=== PATIENT | female | born 1990 | race Hispanic/Latino ===

== ENCOUNTER → 2025-01-16 | Outpatient (CLI) | payer OTHER ==
[~2025-01-16] VITALS: Ht 15.2 cm; Wt 110.5 kg
--- NOTE | 2025-01-16 13:23 | NUR ---
BARIATRIC INITIAL ASSESSMENT VISIT 1 OF 6 Wt: 243.6 lbs DOS: 01/16/25 Pt seeking bariatric procedure to aid in wt loss and improve medical health conditions. Pt reported she heard of procedure from family members, has struggled with wt all her life, has tried medication, exercise to lose wt, mothers and fathers side both struggle with wt, CBW length of wt has been 3 months, has 6 children, 13 yr old with autism, no support at home, grocery shops on her own, mainly cooks, eats ~2 meals + 1 snack, sodas 1x per day, sweet/salty snacks 2x per day, fast food 3x per week, it takes 30-40 min to finish a meal, struggles with emotional and stress eating, dx with anxiety and depression, no therapy, no plan for any time soon, work affects eating habits, is a junior high math teacher, does not travel often, has means to purchase healthy food with no issue, sleeps ~5 hrs per day, is able to exercise, mom being support system, goal wt of 150 [address] conducted 24 hr recall: Breakfast: flour tortilla taco + potato+ egg+ cheese + coffee w/ sugar and creamer Lunch: skipped Dinner: 1 slice of pizza+ ramen noddles + dr delacruz Snack(s): chocolate covered strawberries + water RD reviewed portion sizes with pt, reviewed healthy plate, informed Pt of importance of protein intake, demonstrated DM chart, reviewed carbohydrate sources and carbohydrate counting, provided and an estimate for estimated carbohydrate intake per day. Pt completed wt management program diet readiness questionnaire. Results are as follows: Section 1: Goals and Attitudes. Score of 22.You may be close to being ready to begin a program but should think about ways to boost your preparedness before you begin. Sections 2: Hunger and Eating cues. Score 5.You might occasionally eat more than you would like, but it does not appear to be a result of high responsiveness to environmental cues. Controlling the attitudes that make you eat may be especially helpful. Section 3: Control over Eating. Score 3.You recover rapidly from mistakes. However, if you frequently alternate between eating out of control and dieting strictly, you may have a serious eating problem and should get professional help. Section 4: Nidhi Eating and Purging: Score 0. It appears that binge eating, and purging is not a problem for you. Section 5: Emotional Eating: Score 10.You sometimes eat in response to emotional highs and lows. Monitor this behavior to learn when and why it occurs and be prepared to find alternative activities. Section 6: Exercise Patterns and Attitudes: Score 13. You need to feel more positive about exercise so that you can do it more often. Think of ways to be more active that are fun and fit your lifestyle. Goals Established: -MVI QD -30 min walk QD -transition to SF beverages Pt in agreement with goals and is aware she will need to cut carbonated beverages, sweets and caffeine prior to surgery. Recommended for Pt to complete visits with Dietitian to prepare for bariatric procedure. Thank you for this visit. Addendum: 01/16/25 at [address] Amended: Links added.
== END | disposition home or self-care (01) ==
LOC: DTH 09:48
PROVIDERS: ATTEND Surgery
DX: I10 Essential (primary) hypertension (principal); G47.33 Obstructive sleep apnea (adult) (pediatric); M19.91 Primary osteoarthritis, unspecified site; E78.00 Pure hypercholesterolemia, unspecified; K21.9 Gastro-esophageal reflux disease without esophagitis; E66.01 Morbid (severe) obesity due to excess calories; Z68.41 Body mass index [BMI] 40.0-44.9, adult
CPT/HCPCS: 97802

== ENCOUNTER → 2025-02-06 | Outpatient (CLI) | payer OTHER ==
--- NOTE | 2025-02-06 09:32 | NUR ---
BARIATRIC FOLLOW UP NOTE VISIT 2 OF 6 Wt: 247 LBS DOS: 02/06/25 Upon follow up visit, pt presents with a 4 lb wt gain. Pt reported she felt disappointed towards wt gain, cut off soda, increased water intake, cut off bread, does not have regular menstrual cycles, has not seen an OBYGN in 2 years, is with MVI QD, no protein supplement, no exercise, her was convicted to [employer] lately so she has felt more depressed and with low motivation. RD conducted 24 hr food recall. Breakfast: skipped Lunch: skipped Dinner: bowel of cinnamon toast crunch RD reviewed simple CHO and complex CHO intake, reviewed labs, encouraged Pt to visit PCP to discuss labs and mood change, encouraged pt to decrease soft drink (even sugar free) consumption secondary to carbonation and caffeine, pt verbalized understanding. RD and pt established goals for next month: -protein supplement qd -2 meals per day -walking 2 x per week for 10 mins Thank you for this visit Addendum: 02/06/25 at [address] Amended: Links added.
== END | disposition home or self-care (01) ==
LOC: DTH 08:49 → EDUNIT# 09:00
PROVIDERS: ATTEND Surgery
DX: E66.01 Morbid (severe) obesity due to excess calories (principal); I10 Essential (primary) hypertension; M19.91 Primary osteoarthritis, unspecified site; G47.33 Obstructive sleep apnea (adult) (pediatric); E78.00 Pure hypercholesterolemia, unspecified; K21.9 Gastro-esophageal reflux disease without esophagitis; Z71.3 Dietary counseling and surveillance
CPT/HCPCS: 97803

== ENCOUNTER → 2025-03-04 | Outpatient (CLI) | payer OTHER ==
--- NOTE | 2025-03-04 09:39 | NUR ---
BARIATRIC FOLLOW UP NOTE VISIT 3 OF 6 Wt: 250 LBS DOS: 03/04/25 Upon follow up visit, pt presents with a 3 lb wt gain. Pt reported she has been donating plasma lately, felt awful towards wt gain, on vit. D prescription, is frustrated with wt gain, started [employer], needs two more weeks of school,has been walking QD for 1 hr, has her period consistently. RD conducted 24 hr food recall. Breakfast: oatmeal+ protein shake+ coffee Lunch: skipped Dinner: salmon + green beans S:1 bag of nuts + rice cakes RD reviewed meal prepping, discussed meal prepping on a busy schedule, discussed ways to incorporate healthier snacks and high protein, discussed vit. D supplements, encouraged pt to decrease soft drink (even sugar free) consumption secondary to carbonation and caffeine, pt verbalized understanding. RD and pt established goals for next month: -continue MVI QD -continue walking qd for 1 hour -no skipping meals Thank you for this visit Addendum: 03/04/25 at [address] Amended: Links added.
== END | disposition home or self-care (01) ==
LOC: DTH 08:44 → EDUNIT# 09:00
PROVIDERS: ATTEND Surgery
DX: G47.33 Obstructive sleep apnea (adult) (pediatric) (principal); E66.01 Morbid (severe) obesity due to excess calories; I10 Essential (primary) hypertension; M19.91 Primary osteoarthritis, unspecified site; E78.00 Pure hypercholesterolemia, unspecified; K21.9 Gastro-esophageal reflux disease without esophagitis
CPT/HCPCS: 97803

== ENCOUNTER → 2025-03-26 | Outpatient (CLI) | payer OTHER ==
--- NOTE | 2025-03-26 15:10 | NUR ---
BARIATRIC FOLLOW UP NOTE VISIT 4 OF 6 Wt: 251 LBS DOS: 03/26/25 Children present during visit. Upon follow up visit, pt presents with a 1 lb wt gain. Pt reported she felt wt gain, MVI QD, finished [employer], going out of town soon, on vit. D prescription, walking QD 1 hr 5x per week, no protein shakes, cut down on carbonation, recently got braces. RD conducted 24 hr food recall. Breakfast: skipped Lunch: skipped Dinner: sushi + soda S: mixed nuts RD reviewed simple CHO and complex CHO intake, encouraged pt to decrease soft drink (even sugar free) consumption secondary to carbonation and caffeine, pt verbalized understanding. RD and pt established goals for next month: -have breakfast -increase color in meals -protein shake QD -continue walking regimen Thank you for this visit Addendum: 03/26/25 at [address] Amended: Links added.
== END | disposition home or self-care (01) ==
LOC: DTH 14:14 → EDUNIT# 04-01 09:00
PROVIDERS: ATTEND Surgery
DX: G47.33 Obstructive sleep apnea (adult) (pediatric) (principal); E66.01 Morbid (severe) obesity due to excess calories; I10 Essential (primary) hypertension; M19.91 Primary osteoarthritis, unspecified site; K21.9 Gastro-esophageal reflux disease without esophagitis
CPT/HCPCS: 97803

== ENCOUNTER → 2025-04-29 | Outpatient (CLI) | payer OTHER ==
--- NOTE | 2025-04-29 15:58 | NUR ---
FOLLOW PRE-OP/POST-OP DIETARY RECOMMENDATIONS BARIATRIC PRE-OP VISIT VISIT 5 OF 6 Wt: 252 lb DOS: 04/29/25 Upon follow up visit, pt presented with a 1 lb Wt gain. Pt reported this may be her last visit due to having all her clearances, has been walking daily up to 3 miles, has been trying protein shakes, MVI QD, with isopure. RD reviewed educational material for pre-op and post-op diet recommendations with detailed phases of diet post-op. Pt was informed of importance of lifelong vitamin/mineral supplementation, choosing protein first during meals (pt was educated on higher protein requirements), choosing low calorie, sugar free, carbonated free and caffeine beverages. RD also informed pt on lifelong commitment to exercise and dietary recommendations for optimal success post surgery. RD encouraged getting blood work every 3 to 6 months, including B-vitamins, Pt verbalized understanding. RD informed Pt on moving around after procedure to prevent DVT, Pt verbalized understanding. Pt was encouraged to contact RD as questions arise and to attend support groups. RD provided protein supplement recommendations along with Bariatric Vitamin recommendations via graphics to patient. Pt with several questions, all of which were answered. Fair compliance suspected. Pt will benefit from outpatient bariatric dietitian follow up post procedure. Pt to follow up with PCP for labs. Thank you for this visit. Addendum: 04/29/25 at [address] Amended: Links added.
== END | disposition home or self-care (01) ==
LOC: EDUNIT# 09:00 → DTH 09:02
PROVIDERS: ATTEND Surgery
DX: E66.01 Morbid (severe) obesity due to excess calories (principal); I10 Essential (primary) hypertension; G47.33 Obstructive sleep apnea (adult) (pediatric); M19.91 Primary osteoarthritis, unspecified site; E78.00 Pure hypercholesterolemia, unspecified; K21.9 Gastro-esophageal reflux disease without esophagitis; Z68.41 Body mass index [BMI] 40.0-44.9, adult
CPT/HCPCS: 97803

== ENCOUNTER 2025-05-14 08:26 | Day surgery (SDC) | payer MEDICAID ==
[~2025-05-14] VITALS: Ht 162.6 cm; Wt 113.9 kg
[2025-05-14] VITALS (11 sets, daily range): BP systolic 112–127; BP diastolic 64–86; PULSE 63–87; RESP 15–18; TEMP 97.4–97.5
[~2025-05-14 08:26] MED LIST: BUSP7.5T7 PO; ERGO50CA PO; LOSA50TA64 PO
[2025-05-14] MEDS: 0.9%NACL 1000ML 1,000 ML IV ONE (08:59)
[2025-05-14] MEDS ORDERED: ketaMINE 50MG/ML SYRINGE 50 MG/ML DISP.SYRIN ONE (10:33)
[2025-05-14] MEDS ORDERED: proPOFol 10 MG/ML 20ML VIAL IV ONE (10:33)
== END 2025-05-14 11:50 | disposition home or self-care (01) ==
LOC: DAH 08:26 → ENDO 08:26
PROVIDERS: ATTEND Surgery
DX: R12 Heartburn (principal); K29.50 Unspecified chronic gastritis without bleeding; K44.9 Diaphragmatic hernia without obstruction or gangrene; K22.89 Other specified disease of esophagus; K31.89 Other diseases of stomach and duodenum; K21.9 Gastro-esophageal reflux disease without esophagitis; I10 Essential (primary) hypertension; E03.9 Hypothyroidism, unspecified; F41.9 Anxiety disorder, unspecified; F32.A Depression, unspecified; G47.33 Obstructive sleep apnea (adult) (pediatric); R14.0 Abdominal distension (gaseous); E78.2 Mixed hyperlipidemia; E66.01 Morbid (severe) obesity due to excess calories; Z88.8 Allergy status to other drugs, medicaments and biological substances; Z90.89 Acquired absence of other organs; Z68.41 Body mass index [BMI] 40.0-44.9, adult; Z90.49 Acquired absence of other specified parts of digestive tract; Z98.51 Tubal ligation status; Z98.890 Other specified postprocedural states; Z79.899 Other long term (current) drug therapy
CPT/HCPCS: 84703; 36415; 43239; J7030; J2704; J3490; A4620; A4215 ×2; A4223; A4222; A4221; A4663; A4606

== ENCOUNTER → 2025-05-21 | Outpatient (CLI) | payer OTHER ==
--- NOTE | 2025-05-21 15:06 | NUR ---
FOLLOW PRE-OP/POST-OP DIETARY RECOMMENDATIONS BARIATRIC PRE-OP VISIT VISIT 6 OF 6 Wt: 252.6 lbs DOS: 05/21/25 Upon follow up visit, pt presented with no wt change. Pt reported surgery date in June 12, MVI QD, not working, increased protein intake, has been trying different protein products, talked to catering coordinator, is getting the bypass, started carbonation again. RD reviewed educational material for pre-op and post-op diet recommendations with detailed phases of diet post-op. Pt was informed of importance of lifelong vitamin/mineral supplementation, choosing protein first during meals (pt was educated on higher protein requirements), choosing low calorie, sugar free, carbonated free and caffeine beverages. RD also informed pt on lifelong commitment to exercise and dietary recommendations for optimal success post surgery. RD encouraged getting blood work every 3 to 6 months, including B-vitamins, Pt verbalized understanding. RD informed Pt on moving around after procedure to prevent DVT, Pt verbalized understanding. Pt was encouraged to contact RD as questions arise and to attend support groups. RD provided protein supplement recommendations along with Bariatric Vitamin recommendations via graphics to patient. Pt with several questions, all of which were answered. Fair to poor compliance suspected. Pt will benefit from outpatient bariatric dietitian follow up post procedure. Pt to follow up with PCP for labs. Thank you for this visit. Addendum: 05/21/25 at [address] Amended: Links added.
== END | disposition home or self-care (01) ==
LOC: DTH 14:32 → EDUNIT# 05-22 09:30
PROVIDERS: ATTEND Surgery
DX: E66.01 Morbid (severe) obesity due to excess calories (principal); E66.1 Drug-induced obesity; I10 Essential (primary) hypertension; G47.33 Obstructive sleep apnea (adult) (pediatric); M19.91 Primary osteoarthritis, unspecified site; K21.9 Gastro-esophageal reflux disease without esophagitis; Z68.42 Body mass index [BMI] 45.0-49.9, adult
CPT/HCPCS: 97803

== ENCOUNTER → 2025-09-08 | Outpatient (CLI) | payer MEDICAID ==
[~2025-09-08] MED LIST changes: +ERGO500093 PO; -ERGO50CA PO; -LOSA50TA64 PO; +[UNRECOGNIZED DRUG - OTHER] PO
--- NOTE | 2025-09-08 09:53 | HMCIMG ---
DOUBLE CONTRAST UPPER GI SERIES: CLINICAL HISTORY: Gastroesophageal reflux. Patient has a history of gastric bypass surgery. Finding: The study was performed using provocative maneuvers After swallowing effervescent crystal and thick barium, there is no definite intrinsic or extrinsic lesion seen in the esophagus. There is small hiatal hernia with grade 1 esophageal reflux. The stomach demonstrate a gastric bypass surgery with patent anastomosis. The contrast readily entered centimeters duodenum.. Fluoroscopy time: 0.7 minutes IMPRESSION: Status post gastrojejunostomy with patent anastomosis Small hiatal hernia with grade 1 esophageal reflux.
== END | disposition home or self-care (01) ==
LOC: RAH 08:51
PROVIDERS: ATTEND Surgery
DX: K21.9 Gastro-esophageal reflux disease without esophagitis (principal); K44.9 Diaphragmatic hernia without obstruction or gangrene; Z98.84 Bariatric surgery status
CPT/HCPCS: 74240